=== PATIENT | female | born 1985 | race Two or more races ===

== ENCOUNTER 2020-06-06 01:19 | Emergency (ER) | payer MEDICAID ==
[~2020-06-06] VITALS: Ht 152.4 cm; Wt 63.5 kg
--- NOTE | 2020-06-06 01:50 | NUR ---
NNAMDI HINTON at [facility] for MSE
[2020-06-06] MEDS ORDERED: CYCLOBENZAPRINE HCL 10 MG TABLET ONE (02:10)
[2020-06-06] MEDS: CYCLOBENZAPRINE HCL 10 MG TABLET PO ONE (02:14)
--- NOTE | 2020-06-06 02:17 | NUR ---
Urine collect and sent to lab at this time
[2020-06-06 02:27] LABS: *URINE HCG, QUAL NEGATIVE (NEGATIVE)
[2020-06-06] MEDS: ACETAMINOPHEN ES 500 MG TABLET PO ONE (02:28)
[2020-06-06] MEDS ORDERED: ACETAMINOPHEN ES 500 MG TABLET ONE (02:29)
[2020-06-06 02:55] VITALS: BP 112/75
--- NOTE | 2020-06-06 02:59 | NUR ---
Patient discharged to home in stable condition via steady ambulation with family member. Written and verbal after care instructions given. Patient verbalizes understanding of instructions. Rx given. Patient states decreased pain level. Stressed follow up or return to ER for worsening s/s.
== END 2020-06-06 03:02 | disposition home or self-care (01) ==
LOC: ER 01:24
DX: M25.551 Pain in right hip (principal)
CPT/HCPCS: 72170; 73502; 84703; A4663; A9150